=== PATIENT | female | born 1945 | race Caucasian/White ===

== ENCOUNTER 2024-09-11 14:08 | Inpatient (IN) | payer MEDICARE, SELFPAY ==
[2024-09-11 07:10] VITALS: BP 91/53
--- NOTE | 2024-09-11 07:38 | ED.GENMED ---
History of Present Illness
General
Chief Complaint: Abdominal Symptoms
Source: patient
Exam Limitations: none
Time Seen by Provider: 09/11/24 07:25
Nursing documentation reviewed up to this point in time: agreed with
History of Present Illness
History of Present Illness:
Patient presents to ED secondary to persistent nausea, vomiting, along with abdominal cramping sensation over the past 4 days. Patient was evaluated urgent care center yesterday and was given diagnosis of potential food poisoning. Denies any fever
or chills. Denies diarrhea. Denies new medications or diet. Denies previous history of similar symptoms. Denies previous history abdominal surgery. Denies recent travel. Denies sick contact. Denies recent weight changes.
Review of Systems
Review of Systems
Allergies reviewed?: Yes
All Other Systems: ROS reviewed and negative except as documented in HPI and ROS
Constitutional: Reports no symptoms
EENT: Reports no symptoms
Respiratory: Reports no symptoms
Cardiac: Reports no symptoms
ABD/GI: Reports abdominal pain, nausea and vomiting
Musculoskeletal: Reports no symptoms
Skin: Reports no symptoms
Neurological: Reports no symptoms
Phy Exam
Physical Exam
Physical Exam:
Physical Exam
General: mild distress, not acutely ill. afebrile
Head: nc/at. eomi
Neck: supple. no meningeal signs.
Heart: s1/s2 regular rate and rhythm, no murmur. equal radial pulses.
Lungs: no acute respiratory distress. clear bilaterally
Abdomen: normal bowel sounds. mild RLQ tenderness to palpation.
Neuro: alert and oriented. no focal neurological deficits
Skin: no rash
Psychiatric: well kept. interactive and cooperative
Extremities: no edema. no calf tenderness.
Course
Orders/Labs/Results
Orders:
Orders
09/11/24 07:38
Electrocardiogram (*1) Urgent
Reason for Study: QTc Monitoring
EKG- Treatment ONCE
0.9% Sodium Chloride 1000 ml [Nss] 1,000 ml IV BOLUS
09/11/24 08:04
Complete Blood Count/With Diff Urgent
Comprehensive Metabolic Panel Urgent
Magnesium Urgent
09/11/24 08:10
Iohexol [Omnipaque] See Protocol PO NOW STA
Ondansetron Injectable [Zofran] 4 mg IV NOW STA
09/11/24 08:36
CT Abd/pel (oral only)-DH Only Urgent
Comment:
Reason For Exam: RLQ pain
09/11/24 09:07
Prochlorperazine [Compazine] 10 mg IV NOW STA
09/11/24 13:15
0.9% Sodium Chloride 1000 ml [Nss] 1,000 ml IV 125 mls/hr
09/11/24 13:41
Admit/Transfer Patient As Directed
Co-Sign Provider:
Level of Care: Inpatient admission
Assign to:: Medical/Surgical
Physician / Group: [email or web address]
Diagnosis: acute gastroenteritis
Reason for Hospitalization: acute gastroenteritis
Expected length of stay greater than two midnights?: Yes
ELOS- Estimated Length of Stay in days: 2
I certify the patient meets the requirements for IP care: Yes
Code Status As Directed
Resuscitation Status: Full Code
PRN Pain Medication Management As Directed
May give lesser potent ordered pain med per pt: Yes
preference::
Protocol:: Medication orders for pain may be administered in a
manner that supports deferring to patient preference
when the pt is:
- Requesting an ordered lesser potent pain medication.
Least to most potent pain medications are defined
as: acetaminophen < NSAID < tramadol < opioids
(morphine, oxycodone, hydromorphone).
- Requesting a lesser dose of the same medication IF
ORDERED.
- Requesting a less intrusive route of administration
if both routes are prescribed by the provider (PO <
IV).
Abnormal Lab Results
09/11/24
08:04
MCH 33.6 H pg
(27.0-31.0)
Absolute Neuts (auto) 6.6 H 10^3/uL
(1.4-6.5)
Absolute Monos (auto) 1.0 H 10^3/uL
(0.1-0.6)
Lymphocytes % 15.0 L %
(20.5-51.1)
Monocytes % 10.8 H %
(1.7-9.3)
Chloride 83 L mmol/L
(98-107)
Carbon Dioxide 35 H mmol/L
(22-30)
BUN 52 H mg/dl
(7-17)
Creatinine 2.7 H mg/dL
(0.6-1.0)
Glucose 125 H mg/dl
(70-99)
Calcium 12.3 H mg/dl
(8.4-10.2)
Total Bilirubin 1.5 H mg/dl
(0.2-1.3)
09/11/24 08:04
09/11/24 08:04
Vital Signs
Initial and Last Documented VS:
Initial Vital Signs
Temp Pulse Resp BP Pulse Ox
98.1 F 87 16 91/53 98
09/11/24 07:10 09/11/24 07:10 09/11/24 07:10 09/11/24 07:10 09/11/24 07:10
Last Documented Vital Signs
Temp Pulse Resp BP Pulse Ox
98.1 F 82 18 105/72 99
09/11/24 07:10 09/11/24 12:52 09/11/24 12:52 09/11/24 12:52 09/11/24 12:52
MDM/Problems Addressed
MDM/Problems Addressed:
History, exam, and CT scan consistent with acute renal failure, likely secondary to dehydration from ongoing enteritis. As patient remains symptomatic, with presumably new renal failure, will be admitted for further evaluation treatment, including
continual hydration and symptomatic treatment.
*EKG
Interpreted by ED Provider?: Yes
EKG Intrepretation Date: 09/11/24
Heart Rate: 71
Rate: normal
Rhythm: sinus
[place]: normal axis
Interval: normal interval
Ischemia: T-wave inversion
*Critical Care Note
Total Time (30-74mins, 75-104mins- exclusive of procedures): Not Applicable
ED Attending Note
-
Portions of this chart may have been created with voice recognition software.� Occasional wrong word or��sound alike� substitutions may have occurred due to the inherent limitations of voice recognition software.
Discharge Plan
Departure
Patient Disposition: Admit
Date of Disposition: 09/11/24
Time of Disposition: 13:11
Admit to: Med/Surg
Presentation/result/management discussed w/ accepting MD/DO: Hospitalist
Discharge Problem:
Acute renal failure, Enteritis, Dehydration
Interventions
Interventions:
*Risk Screen - Suicide Last Done: 09/11/24 07:10
*General Assessment Last Done: 09/11/24 08:04
*Neglect/Abuse Screening Last Done: 09/11/24 07:10
ED- Fall Risk Assessment Last Done: 09/11/24 09:20
*ED COVID-19 Vaccine History Last Done: 09/11/24 08:04
HG-Vxbseq-Dztpdcjfzt Assessment Last Done: 09/11/24 09:20
[2024-09-11] MEDS: NSS 1000 IV ×3 (08:03→15:42)
[2024-09-11 08:04] VITALS: BMI 18.5
[2024-09-11 08:05] VITALS: BP 92/64
[2024-09-11 08:23] LABS: % Basophils 0.3 % (0-2); % Eosinophils 0.1 % (0-6); % Immature Granulocytes 0.4 % (0-0.5); % Monocytes 10.8 % (1.7-9.3); % Neutrophils 73.4 % (42.2-75.2); Absolute Lymphocytes 1.4 10^3/uL (1.2-3.4); Absolute Neutrophils 6.6 10^3/uL (1.4-6.5); Hematocrit 43.3 % (37.0-47.0); Hemoglobin 15.9 g/dL (12.0-16.0); Mean Corp Hgb Conc. 36.7 g/dL (33.0-37.0); Mean Corpuscular Hgb 33.6 pg (27.0-31.0); Mean Corpuscular Volume 91.5 fL (81.0-99.0); Mean Platelet Volume 9.9 fL (7.4-10.4); Nucleated Red Blood Cells % 0 %; Platelet Count 294 10^3/uL (130-400); Red Blood Cell Count 4.73 10^6/uL (4.20-5.40); Red Cell Dist. Width 13.9 % (11.5-14.5); White Blood Cell Count 9.1 10^3/uL (4.8-10.8)
[2024-09-11 08:26] LABS: ALT (SGPT) 20 U/L (0-35); AST (SGOT) 35 U/L (14-36); Alkaline Phosphatase 78 U/L (38-126); Blood Urea Nitrogen 52 mg/dl (7-17); Calcium 12.3 mg/dl (8.4-10.2); Carbon Dioxide 35 mmol/L (22-30); Chloride 83 mmol/L (98-107); Estimated Creatinine Clearance 14 ml/min; Glucose 125 mg/dl (70-99); Magnesium 2.1 mg/dl (1.6-2.3); Potassium 3.8 mmol/L (3.5-5.1); Sodium 135 mmol/L (135-145); Total Bilirubin 1.5 mg/dl (0.2-1.3); Total Protein 7.6 g/dl (6.3-8.2); eGFR 17.29
[2024-09-11] MEDS: ZOFRAN 4 MG IV (08:33)
[2024-09-11] MEDS: COMPAZINE 10 MG IV (09:13)
[2024-09-11 10:00] VITALS: BP 146/69
[2024-09-11] MEDS: OMNIPAQUE 50 ML PO (10:18)
[2024-09-11 12:52] VITALS: BP 105/72
--- NOTE | 2024-09-11 13:43 | HPS.HSE ---
Family Physician
-
Family Physician: Yoandy San
Chief Complaint
-
vomiting
History of Present Illness
78-year-old female past medical history of CAD, hypertension, anxiety, gout, GERD, hyperlipidemia, presenting with nausea, vomiting green material over the past 4 days. She states that she was eating arugula prior to her onset of symptoms 4 days
ago. She denies any significant amount of abdominal pain.
Patient went to urgent care yesterday and was diagnosed with potential food poisoning. Denies fevers or chills. Denies diarrhea. Denies any history of abdominal surgery. Denies any recent travel or sick contacts. Denies any weight changes.
She was initially constipated for 4 days but after receiving IV fluids today she has passed loose stools and feels better.
She is a former smoker. She denies alcohol use. She denies any marijuana or any other drugs.
Medical History
Past Medical History
Past Medical History: Reports Other (CAD, hypertension, anxiety, gout, GERD, hyperlipidemia,)
Past Surgical History: Reports None
Social History
Tobacco: Former Smoker
Alcohol: None
Drug: None
Family History
Family History: Not pertinent
Allergies / Home Medications
Allergies reflects when Allergies were last updated in [facility].
Home Medications with original date entered in [facility]
Allergy/Medication List:
Allergies
Allergy/AdvReac Type Severity Reaction Status Date / Time
Cephalosporins Allergy Unknown Verified 09/11/24 07:14
Penicillins Allergy Anaphylaxis Verified 09/11/24 07:14
Home Medications
allopurinol 300 mg tablet 300 mg PO DAILY 09/11/24
lisinopril 5 mg tablet 5 mg PO DAILY 09/11/24
metoprolol succinate 50 mg tablet,extended release 24 hr (Toprol XL) 50 mg PO DAILY 09/11/24
rosuvastatin 20 mg tablet (Crestor) 20 mg PO DAILY 09/11/24
turmeric 400 mg capsule 400 mg PO DAILY 09/11/24
vit C 30 mg-s.ho 250 mg-celery seed 75 mg-grape seed extrt capsule (Tart Ho) 1 cap PO DAILY 09/11/24
Review of Systems
-
History Source: Patient
A 12 point ROS was completed and negative except as noted: Yes
Constitutional: Reports No Symptoms
EENT: Reports No Symptoms
Respiratory: Reports No Symptoms
Cardiac: Reports No Symptoms
Abdomen/GI: Reports See HPI
: Reports No Symptoms
Musculoskeletal: Reports No Symptoms
Skin: Reports No Symptoms
Neurological: Reports No Symptoms
Endocrine: Reports No Symptoms
Hematologic/Lymphatic: Reports No Symptoms
Psych: Reports No Symptoms
Physical Exam
Vital Signs
Vital Signs
Temp Pulse Resp BP Pulse Ox
98.1 F 82 18 105/72 99
09/11/24 07:10 09/11/24 12:52 09/11/24 12:52 09/11/24 12:52 09/11/24 12:52
Physical Exam
General: Well Developed, Well Nourished and No Apparent Distress
HEENT: NormoCephalic, Moist mucous membranes and Atraumatic
Respiratory: Clear
Cardiac: S1/S2 and Regular Rhythm; No Murmur or Rub
GI: Soft, Non Tender, Non Distended and Normal Bowel Sounds; No Organomegaly
Rectal: Deferred by Provider
Musculoskeletal: No Clubbing, No Cyanosis and No Edema
Skin: No Rash
Neuro: Nonfocal/grossly intact
Laboratory Results
-
09/11/24 08:04
09/11/24 08:04
Laboratory Results
Total Bilirubin 1.5 mg/dl (0.2-1.3) H 09/11/24 08:04
AST 35 U/L (14-36) 09/11/24 08:04
ALT 20 U/L (0-35) 09/11/24 08:04
Alkaline Phosphatase 78 U/L (38-126) 09/11/24 08:04
Data Reviewed
-
Lab Data: Labs Reviewed by me
Old Records: Reviewed
Impression/Plan
-
IMPRESSION:
PLAN:
# Acute gastroenteritis versus adynamic ileus versus partial mechanical small bowel obstruction
-N.p.o.
-CT abdomen pelvis shows severe fluid distention of the stomach, duodenum, proximal small bowel loops, mid small bowel loops consistent with acute gastroenteritis, adynamic ileus, partial mechanical small bowel obstruction
-Zofran
-No abdominal tenderness, presentation more consistent with gastroenteritis/ileus than bowel obstruction at this time and patient clinically improving
# ANTONIA prerenal
-Creatinine of 2.7
-Hold lisinopril
# Hypercalcemia secondary to hypovolemia
-Calcium of 12.3
-Check PTH if still elevated after volume repletion
CAD
-Continue metoprolol
Essential hypertension
Anxiety
Gout
-Continue allopurinol
GERD
Hyperlipidemia
-Continue statin
Full code
DVT prophylaxis�heparin
N.p.o.
[2024-09-11 15:36] VITALS: BP 134/72; BMI 18.1
[2024-09-11 16:15] VITALS: BMI 18.1
--- NOTE | 2024-09-11 16:40 | PTCARENOTE ---
pt presents from ED via stretcher. pt is AAO*3, Vss, room air. pt denies any N/V at this time. denies any pain. pt is oriented to the room. call lerma within the reach. plan of care ongoing.
[2024-09-11] MEDS: HEPARIN 5000 UNITS SC (20:22)
[2024-09-11 23:40] VITALS: BP 111/61
[2024-09-12] MEDS: NSS 1000 IV ×2 (05:17→17:42)
[2024-09-12 05:57] LABS: % Basophils 0.6 % (0-2); % Eosinophils 1.5 % (0-6); % Immature Granulocytes 0.8 % (0-0.5); % Lymphocytes 17.7 % (20.5-51.1); % Monocytes 11.7 % (1.7-9.3); % Neutrophils 67.7 % (42.2-75.2); Absolute Eosinophils 0.1 10^3/uL (0-0.7); Absolute Immature Granulocytes 0.1 10^3/uL (0-0.05); Absolute Lymphocytes 1.2 10^3/uL (1.2-3.4); Absolute Monocytes 0.8 10^3/uL (0.1-0.6); Absolute Neutrophils 4.4 10^3/uL (1.4-6.5); Hematocrit 36.9 % (37.0-47.0); Hemoglobin 12.2 g/dL (12.0-16.0); Mean Corp Hgb Conc. 33.1 g/dL (33.0-37.0); Mean Corpuscular Hgb 32.1 pg (27.0-31.0); Mean Corpuscular Volume 97.1 fL (81.0-99.0); Nucleated Red Blood Cells % 0 %; Platelet Count 198 10^3/uL (130-400); White Blood Cell Count 6.6 10^3/uL (4.8-10.8)
[2024-09-12 06:11] LABS: ALT (SGPT) 17 U/L (0-35); AST (SGOT) 28 U/L (14-36); Albumin 3.4 g/dl (3.5-5.0); Alkaline Phosphatase 53 U/L (38-126); Blood Urea Nitrogen 44 mg/dl (7-17); Calcium 10.2 mg/dl (8.4-10.2); Carbon Dioxide 26 mmol/L (22-30); Chloride 100 mmol/L (98-107); Estimated Creatinine Clearance 23 ml/min; Glucose 75 mg/dl (70-99); Potassium 3.4 mmol/L (3.5-5.1); Sodium 139 mmol/L (135-145); Total Bilirubin 1.5 mg/dl (0.2-1.3); Total Protein 5.6 g/dl (6.3-8.2)
[2024-09-12 07:50] VITALS: BP 149/73
[2024-09-12] MEDS: CRESTOR 20 MG PO (08:03)
[2024-09-12] MEDS: HEPARIN 5000 UNITS SC ×2 (08:03→20:09)
[2024-09-12] MEDS: ZYLOPRIM 300 MG PO (08:03)
[2024-09-12] MEDS: TOPROL XL 50 MG PO (08:37)
--- NOTE | 2024-09-12 12:55 | CM ---
CM reviewed chart, patient seen bedside, initial assessment completed. Patient resides independently in a single story home, no steps to enter. Patient reports having a walker at home that was her husbands, does not use. Patient reports history of
[facility], denies SNF. Patient confirms PCP Yoandy San, pharmacy [facility], confirms prescription coverage. Patient denies insecurities at home. CM will continue to follow for all discharge planning needs.
Plan; home no needs likey.
--- NOTE | 2024-09-12 14:38 | W.PN.HOSP.TC ---
Today's Communication/Plan
-
trial of liquid diet
maintain on IVF
f/u labs
Assessment / Plan
Assessment / Plan
CTAP
1. Severe fluid distention of the stomach, duodenum, proximal small bowel loops, and mid small bowel loops. Slow transition of distended small bowel loops to completely collapsed distal ileal small bowel loops in the right side of the midabdomen.
Diagnostic possibilities are (1) an ACUTE GASTROENTERITIS, (2) an adynamic ileus, or (3) less likely a partial mechanical small bowel obstruction given the absence of a definitive transition point.
2. Moderate diverticulosis in the ascending and sigmoid colon.
3. 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
4. Mild chronic bilateral renal disease.
5. Severe calcific atherosclerotic plaque in the coronary arteries and aorta.
6. 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
7. 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
1. Adynamic ileus
-patient came with significant nausea and vomiting with green bilious emesis. no diarrhea
-clinical better, Bowel sound present on exam
-start trial of CL diet and advance to FL diet at dinner time
-No signs of infection, monitor off of antibiotic
2. ANTONIA
-Presumed volume depletion and VIOLETA use related
-Creatinine 2.5, trending down from 1.6 today
-continue monitor
3. Essential HTN
-Maintain on toprol xl
4. HLD
-continue on crestor
DVT PPX - Heparin subq
Full code
Anticipated Discharge: Within 24 hours
Subjective/Interval History
-
Date of Service: September 12, 2024
Clinically feeling better
Denies any abdominal pain
Not passing gas
No nausea or vomiting
Objective Data
-
Labs:
Laboratory Results
09/12/24
05:28
WBC 6.6
Hgb 12.2 D
Hct 36.9 L
Plt Count 198 D
Sodium 139
Potassium 3.4 L
Chloride 100
Carbon Dioxide 26
BUN 44 H
Creatinine 1.6 H
Glucose 75
Calcium 10.2 D
Total Bilirubin 1.5 H
AST 28
ALT 17
Alkaline Phosphatase 53
Vital Signs:
Vital Signs
Temp Pulse Resp BP Pulse Ox
97.4 F 63 18 149/73 98
09/12/24 07:50 09/12/24 07:50 09/12/24 07:50 09/12/24 07:50 09/12/24 07:50
I&O
09/11/24 09/12/24 09/13/24
06:59 06:59 06:59
Intake Total 1000 / 1000
Balance 1000 / 1000
Review of Systems
-
Respiratory: Reports No Symptoms
Cardiac: Reports No Symptoms
Abdomen/GI: Denies Abdominal Pain or Nausea
Physical Exam
-
General: No Apparent Distress and Comfortable
HEENT: Negative Oxygen
Respiratory: Clear to Auscultation
Cardiac: Regular Rhythm and S1/S2; Negative Murmur or Rub
GI: Soft, Nontender, Nondistended and Normal Bowel Sounds
Musculoskeletal: No Edema
Neuro: Awake, Alert, Oriented, No Motor Deficits and Nonfocal/Grossly Intact
Psych: Calm
[2024-09-12 15:40] VITALS: BP 137/71
[2024-09-12 23:47] VITALS: BP 145/76
[2024-09-13] MEDS: NSS 1000 IV (05:32)
[2024-09-13 06:55] LABS: Hematocrit 40.4 % (37.0-47.0); Hemoglobin 13.1 g/dL (12.0-16.0); Mean Corp Hgb Conc. 32.4 g/dL (33.0-37.0); Mean Corpuscular Hgb 32.2 pg (27.0-31.0); Mean Corpuscular Volume 99.3 fL (81.0-99.0); Mean Platelet Volume 10.4 fL (7.4-10.4); Platelet Count 231 10^3/uL (130-400); Red Blood Cell Count 4.07 10^6/uL (4.20-5.40); Red Cell Dist. Width 13.7 % (11.5-14.5); White Blood Cell Count 7.1 10^3/uL (4.8-10.8)
[2024-09-13 07:15] VITALS: BP 152/78
[2024-09-13 07:30] LABS: Blood Urea Nitrogen 28 mg/dl (7-17); Calcium 9.7 mg/dl (8.4-10.2); Carbon Dioxide 26 mmol/L (22-30); Chloride 104 mmol/L (98-107); Estimated Creatinine Clearance 30 ml/min; Glucose 94 mg/dl (70-99); Potassium 3.7 mmol/L (3.5-5.1); Sodium 143 mmol/L (135-145); eGFR 45.76
[2024-09-13] MEDS: HEPARIN 5000 UNITS SC (08:53)
[2024-09-13] MEDS: CRESTOR 20 MG PO (08:54)
[2024-09-13] MEDS: ZYLOPRIM 300 MG PO (08:54)
[2024-09-13] MEDS: TOPROL XL 50 MG PO (08:54)
--- NOTE | 2024-09-13 12:54 | CM ---
Met with patient at bedside
She reported that Son will transport her home
IMM benefit explained; form signed @ 1250
Plan: Discharge to home today; no needs
[2024-09-13] MEDS: CITROMA 300 ML PO (13:04)
--- NOTE | 2024-09-13 13:11 | W.PN.HOSP.TC ---
Today's Communication/Plan
-
d/c home
Assessment / Plan
Assessment / Plan
CTAP
1. Severe fluid distention of the stomach, duodenum, proximal small bowel loops, and mid small bowel loops. Slow transition of distended small bowel loops to completely collapsed distal ileal small bowel loops in the right side of the midabdomen.
Diagnostic possibilities are (1) an ACUTE GASTROENTERITIS, (2) an adynamic ileus, or (3) less likely a partial mechanical small bowel obstruction given the absence of a definitive transition point.
2. Moderate diverticulosis in the ascending and sigmoid colon.
3. 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
4. Mild chronic bilateral renal disease.
5. Severe calcific atherosclerotic plaque in the coronary arteries and aorta.
6. 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
7. 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

1. Adynamic ileus - Improved
-patient came with significant nausea and vomiting with green bilious emesis. no diarrhea
-Normal BS on exam today, passing gas.
-Able to tolerate LR diet without any issues
-providing dose of citroma before discharge
-No signs of infection, monitor off of antibiotic
2. ANTONIA - Improved
-Presumed volume depletion and VIOLETA use related
-Creatinine 2.7 at admit, rapidly normalizing. 1.2 today.
-continue monitor
3. Essential HTN
-Maintain on toprol xl
4. HLD
-continue on crestor
DVT PPX - Heparin subq
Full code
Anticipated Discharge: Today
Subjective/Interval History
-
Date of Service: September 13, 2024
no BM but passing gas
able to tolerate diet without any issues
Objective Data
-
Labs:
Laboratory Results
09/13/24
06:03
WBC 7.1
Hgb 13.1
Hct 40.4
Plt Count 231
Sodium 143
Potassium 3.7
Chloride 104
Carbon Dioxide 26
BUN 28 H
Creatinine 1.2 H
Glucose 94
Calcium 9.7
Vital Signs:
Vital Signs
Temp Pulse Resp BP Pulse Ox
97.6 F 64 16 152/78 98
09/13/24 07:15 09/13/24 07:15 09/13/24 07:15 09/13/24 07:15 09/13/24 07:15
I&O
09/12/24 09/13/24 09/14/24
06:59 06:59 06:59
Intake Total 1000 / 1000 240 / 240
Balance 1000 / 1000 240 / 240
Review of Systems
-
Respiratory: Reports No Symptoms
Cardiac: Reports No Symptoms
Abdomen/GI: Reports Constipated; Denies Abdominal Pain, Nausea or Vomiting
Physical Exam
-
General: No Apparent Distress and Comfortable
HEENT: Negative Oxygen
Respiratory: Clear to Auscultation
Cardiac: Regular Rhythm and S1/S2; Negative Murmur or Rub
GI: Soft, Nontender, Nondistended and Normal Bowel Sounds
Musculoskeletal: No Edema
Neuro: Awake, Alert, Oriented, No Motor Deficits and Nonfocal/Grossly Intact
Psych: Calm
[2024-09-13 13:50] VITALS: BP 142/74
--- NOTE | 2024-09-15 08:05 | W.DCSUMMARY ---
Discharge Summary
Discharge Data
Date of Admission: 09/11/24
Date of Discharge: 09/13/24
-
Pending Results: No
Hospital Course
Discharging Physician : Dr Marlon Conde
Disposition : Home
Primary care physician : Dr Yoandy San
Principal Discharge diagnosis :
Adynamic ileus
Intractable nausea and vomiting
Acute kidney injury
Chronic Discharge diagnosis :
Essential hypertension
Hyperlipidemia
Hospital Course :
Patient is 78-year-old female with above-mentioned past medical history came to ER with new onset of nausea vomiting, with bilious emesis for 3 to 4 days. Patient was seen day before by urgent care physician and was diagnosed to have potentially
food poisoning. Patient did not have any associated fever/abdominal pain/diarrhea. Patient came to [place] ER for further evaluation as symptoms persisted. CT abdomen pelvis showing distended stomach/duodenum/proximal small bowel loops with
potential differential of adynamic ileus or partial small bowel obstruction. Patient was started on conservative management and put on IV hydration. With symptomatic care patient symptoms improved within 48 hours and patient was able to tolerate
trial of solid food.
Patient also had acute kidney injury likely due to volume depletion and simultaneous VIOLETA inhibitor use for blood pressure control. This rapidly normalized with IV fluid as well. Patient will require follow-up blood work with primary care physician
office.
Important imaging findings :
None
Procedure findings :
None
Discharge Plan
-
Patient Disposition: Home (Routine Discharge)
Discharge Diagnosis/Procedures: Ileus
Condition: Fair
Diet: Low Residue
Activity: As tolerated
Driving Restrictions: As prior to admission
Bathing Restrictions: OK to Shower
Referrals:
Yoandy San, DO [Family Provider] - in one week
Prescriptions:
Continued
lisinopril 5 mg Tablet
5 mg PO DAILY
metoprolol succinate [Toprol XL] 50 mg Tablet Extended Release 24 Hr
50 mg PO DAILY
allopurinol 300 mg Tablet
300 mg PO DAILY
rosuvastatin [Crestor] 20 mg Tablet
20 mg PO DAILY
Tart Ho 03-294-50-75-20 mg Capsule
1 cap PO DAILY
turmeric 400 mg Capsule
400 mg PO DAILY
Discharge Orders:
Discharge Patient (As Directed); Ordered 09/13/24
Ordered By: Marlon Conde
Discharge Date and Time
Discharge Date/Time: 09/13/24 14:10
Print Language: LIBERIAN
== END 2024-09-13 14:10 | disposition home or self-care (01) | DRG 389 ==
LOC: 4 EAST ACU 14:08
PROVIDERS: ADMITTING PHYSICIAN Hospitalist; ATTENDING PHYSICIAN Hospitalist; EMERGENCY PHYSICIAN Emergency Medicine; FAMILY PHYSICIAN Family Medicine
DX: K56.0 Paralytic ileus (principal); N17.9 Acute kidney failure, unspecified; I10 Essential (primary) hypertension; I25.10 Atherosclerotic heart disease of native coronary artery without angina pectoris; F41.9 Anxiety disorder, unspecified; M10.9 Gout, unspecified; E78.5 Hyperlipidemia, unspecified; K21.9 Gastro-esophageal reflux disease without esophagitis; E86.1 Hypovolemia; E83.52 Hypercalcemia; E86.0 Dehydration; Z87.891 Personal history of nicotine dependence
CPT/HCPCS: 74176; 80048; 80053; 83735; 85025; 85027; 93005; 96361; 96374; 96375; 99285

== ENCOUNTER → 2024-09-29 10:46 | Outpatient (REF) | payer MEDICARE, SELFPAY | LOC: RAD 10:46 | PROVIDERS: ATTENDING PHYSICIAN Physician Assistant Medical; FAMILY PHYSICIAN Family Medicine | DX: M79.605 Pain in left leg (principal) | CPT/HCPCS: 93971 ==

== ENCOUNTER → 2024-10-13 09:54 | Outpatient (REF) | payer MEDICARE, SELFPAY | LOC: RAD 09:54 | PROVIDERS: ATTENDING PHYSICIAN Physician Assistant Medical; FAMILY PHYSICIAN Family Medicine | DX: M79.605 Pain in left leg (principal) | CPT/HCPCS: 93922; 93925 ==

== ENCOUNTER 2024-10-26 10:18 | Day surgery (SDC) | payer MEDICARE, SELFPAY ==
--- NOTE | 2024-10-19 16:00 | PTCARENOTE ---
Patients 09/11 ECG abnormal- reviewed by Dr. Swartz- no addtional interventions required
[2024-10-26] VITALS (15 sets, daily range): BP systolic 133–165; BP diastolic 67–92; BMI 20.3
[2024-10-26] MEDS: NSS 500 IV (10:59)
[2024-10-26 11:07] LABS: Hemoglobin 13.2 g/dL (12.0-16.0); Mean Corpuscular Hgb 32.5 pg (27.0-31.0); Mean Corpuscular Volume 98.5 fL (81.0-99.0); Mean Platelet Volume 9.7 fL (7.4-10.4); Platelet Count 229 10^3/uL (130-400); Red Blood Cell Count 4.06 10^6/uL (4.20-5.40); Red Cell Dist. Width 13.9 % (11.5-14.5); White Blood Cell Count 7.9 10^3/uL (4.8-10.8)
[2024-10-26 11:25] LABS: INR 0.96; PT 13.3 Sec (11.4-14.6)
[2024-10-26 11:26] LABS: Blood Urea Nitrogen 19 mg/dl (7-17); Calcium 10.8 mg/dl (8.4-10.2); Carbon Dioxide 26 mmol/L (22-30); Chloride 102 mmol/L (98-107); Estimated Creatinine Clearance 47 ml/min; Glucose 97 mg/dl (70-99); Potassium 4.3 mmol/L (3.5-5.1); Sodium 137 mmol/L (135-145); eGFR > 60.00
[2024-10-26 11:27] LABS: APTT 23.7 Sec (23.4-35.0)
--- NOTE | 2024-10-26 12:19 | W.SUR.PREOP ---
Pre-Operative Surgical Note
-
I have examined this patient prior to the performance of the scheduled procedure.
The patient's condition is unchanged from the time of the current History and
Physical and the patient is able to undergo the scheduled procedure.
[2024-10-26] MEDS: PLAVIX 300 MG PO (15:11)
[2024-10-26] MEDS: NSS 1000 IV (15:55)
--- NOTE | 2024-10-26 19:58 | OR.RPT ---
Operative Report
Operative Report
Date of Operation: 10/26/2024
Pre Op Diagnosis:
1. Peripheral arterial disease
2. Ischemic rest pain left foot
3. Disabling left lower extremity claudication
Post Op Diagnosis:
1. Peripheral arterial disease
2. Ischemic rest pain left foot
3. Disabling left lower extremity claudication
Procedure:
1.) Intravascular lithotripsy to left superficial femoral artery and popliteal artery using shockwave javelin catheter
2.) Intravascular lithotripsy to left common femoral artery and proximal superficial femoral artery using 7 mm x 60 mm shockwave M5+
3.) Balloon angioplasty and stenting of left popliteal artery and distal superficial femoral artery (overlapping Zilver PTX stents; 6 mm x 140 mm distal, 6 mm x 60 mm proximal)
4.) Diagnostic aortobiiliac arteriogram
5.) Diagnostic left lower extremity arteriogram
6.) Ultrasound-guided percutaneous access to the right common femoral artery
7.) Pro-glide closure of the right common femoral artery access
Surgeon: Conrado Bah III, MD
Anesthesia: Sedation with local
Fluoroscopy:
39.3 min
175 mGy
32.63 Gy.cm2
Complications: None
Estimated Blood Loss: Minimal
History and Indications for Procedure: 79-year-old female with peripheral arterial disease, disabling left lower extremity claudication and ischemic rest pain of her left foot. She was brought to the operating room for arteriogram and possible
endovascular intervention
Procedure in Detail: Loren Ruiz was correctly identified and placed supine on the operating table. After adequate induction of anesthesia the bilateral groins were prepped and draped in the usual sterile fashion. A timeout was performed with the
nursing and anesthesia staff confirming the patient's identity as well as the nature and laterality of the procedure.
The right common femoral artery was identified under ultrasound guidance. The artery was patent. The superior and inferior aspects of the femoral head were identified with radiographic guidance and marked at the skin level. The proposed puncture
site was infiltrated with local anesthesia. Under ultrasound guidance we accessed the right common femoral artery with a micropuncture needle and upsized to a 5 Fr sheath over a Omise wire. The wire and a Shepherds hook flush catheter were
advanced into the distal abdominal aorta and a diagnostic aorto-biiliac arteriogram was performed:
AORTO-ILIAC ARTERIOGRAM:
Aorta: Heavily calcified. Focal ectasia of the infrarenal abdominal aorta. No stenosis identified
Right common iliac artery: Calcified. Patent. No significant stenosis identified
Right external iliac artery: Patent with no significant stenosis identified
Left common iliac artery: Calcified. Patent. No significant stenosis identified
Left external iliac artery: Patent with no significant stenosis identified
Under roadmap guidance using a Glidewire and the Shepherds hook catheter we selected the left common iliac artery and then the external iliac artery. A Quickcross catheter was tracked up and over the aortic bifurcation and placed in the distal
external iliac artery. A diagnostic left lower extremity arteriogram was then performed which demonstrated the following:
LEFT LOWER EXTREMITY:
Common femoral artery: Calcified. Moderate to high-grade stenosis
Profunda femoral artery: Calcified plaque at the femoral bifurcation. Patent profunda femoral artery
Superficial femoral artery: Calcified plaque at the origin and proximal SFA contributing to moderate to high-grade stenosis. Remainder of SFA diffusely calcified but no significant stenosis
Popliteal artery: Above-knee popliteal artery occluded. Heavily calcified throughout. Reconstitutes behind the knee. High-grade calcified stenosis behind the knee. Patent below the knee with no stenosis identified
Anterior tibial artery: Patent
Tibioperoneal trunk: Patent
Peroneal artery: Patent
Posterior tibial artery: Patent but occludes at the mid to distal calf
ENDOVASCULAR INTERVENTION: Systemic heparin was administered. Exchanged out for a 6 Fr 45 cm sheath over a Storq wire. Selected the superficial femoral artery under roadmap guidance with Quickcross catheter and glidewire. The popliteal occlusion was
crossed with a stiff Glidewire and Quickcross. The wire and catheter were advanced into the below-knee popliteal artery and subtraction angio confirmed proper position in the true lumen. Exchanged out for a BitTorrent ST 0.014 wire. I initially
attempted to perform intravascular lithotripsy using a E8 catheter however this would not deliver across the popliteal occlusion. A 4 mm x 120 mm angioplasty balloon was placed across the occlusion under roadmap guidance. The balloon was inflated
to nominal pressure and then deflated and removed over the wire. I once again attempted to advance the E8 catheter but this would not pass once again. I therefore used the shockwave javelin catheter to perform intravascular lithotripsy across the
heavily calcified popliteal artery occlusion/stenosis. Under roadmap guidance I brought into position the shockwave javelin catheter over the 014 wire. Under roadmap guidance while gently advancing the catheter I simultaneously administered
lithotripsy pulses. The entire length of the popliteal occlusion and areas of popliteal stenosis behind the knee were treated with the shockwave javelin catheter. All 120 pulses were administered. Following this I was able to successfully deliver
a 6 mm x 140 mm Zilver PTX stent. This was positioned and deployed in the desired location across the popliteal artery behind the knee. I extended more proximally with a 6 mm x 60 mm Zilver PTX stent, positioned and deployed in the desired
location. The stents were postdilated with a 6 mm angioplasty balloon. Subsequent arteriogram demonstrated an excellent technical result with widely patent stents and no significant residual stenosis identified.
I then focused my attention on the calcified disease in the proximal superficial femoral artery and common femoral artery. Due to the heavily calcified nature of the arterial disease and in an effort to modify the calcium to achieve maximum luminal
gain with endovascular intervention I elected to proceed with intravascular lithotripsy. A 7 mm x 60 mm M5+ Shockwave balloon was placed across the stenosis under roadmap guidance. Alternating rounds of lithotripsy pulse delivery at sub-nominal
pressure and angioplasty at nominal pressure was performed across the stenosis. In between rounds of pulse delivery and angioplasty the balloon was deflated and repositioned under roadmap guidance. All 300 pulses were delivered. Subsequent
arteriogram demonstrated an excellent technical result with a widely patent common femoral artery, proximal superficial femoral artery and profunda femoral artery with no significant residual stenosis identified.
COMPLETION ARTERIOGRAM: Excellent technical result. Brisk flow through the common femoral artery, superficial femoral artery, profunda femoral artery and popliteal artery stents with no significant residual stenosis identified. Significantly
improved tibial artery flow compared to pretreatment. Patent anterior tibial and peroneal artery runoff distally. Once again demonstrated was a distal posterior tibial artery occlusion.
Satisfied with this result we concluded the procedure. The sheath tip was pulled back into the right external iliac artery. The wire was exchanged out for a Bentson wire. A single Pro-glide closure device was used on the right common femoral
artery access. Protamine was administered. Hemostasis was achieved. A sterile dressing was applied.
The patient tolerated the procedure well and was taken to the recovery area in stable condition.
Signed:
Conrado Bah III, MD
[facility]
[phone] (mrno)
== END 2024-10-26 17:45 | disposition home or self-care (01) ==
LOC: CATH 10:18
PROVIDERS: ATTENDING PHYSICIAN Surgery Vascular Surgery; FAMILY PHYSICIAN Physician Assistant Medical
DX: I70.222 Atherosclerosis of native arteries of extremities with rest pain, left leg (principal); Z95.820 Peripheral vascular angioplasty status with implants and grafts; Z79.82 Long term (current) use of aspirin; Z79.02 Long term (current) use of antithrombotics/antiplatelets; Z79.899 Other long term (current) drug therapy
CPT/HCPCS: C9765; 75625; 75716; 80048; 85027; 85610; 85730; 93005; C1725; C1760; C1769; C1874; C1894; Q9967

== ENCOUNTER 2024-10-26 21:06 | Emergency (ER) | payer MEDICARE, SELFPAY ==
[2024-10-26 21:10] VITALS: BP 169/88
[2024-10-26 21:30] VITALS: BP 177/82
[2024-10-26] MEDS: TYLENOL 1000 MG PO (21:59)
[2024-10-26 22:13] LABS: % Basophils 0.2 % (0-2); % Immature Granulocytes 0.3 % (0-0.5); % Lymphocytes 10.6 % (20.5-51.1); % Monocytes 0.6 % (1.7-9.3); % Neutrophils 88.3 % (42.2-75.2); Absolute Lymphocytes 0.7 10^3/uL (1.2-3.4); Absolute Neutrophils 5.6 10^3/uL (1.4-6.5); Hematocrit 43.3 % (37.0-47.0); Hemoglobin 14.2 g/dL (12.0-16.0); Mean Corp Hgb Conc. 32.8 g/dL (33.0-37.0); Mean Corpuscular Hgb 31.9 pg (27.0-31.0); Mean Corpuscular Volume 97.3 fL (81.0-99.0); Mean Platelet Volume 9.6 fL (7.4-10.4); Nucleated Red Blood Cells % 0 %; Platelet Count 237 10^3/uL (130-400); Red Blood Cell Count 4.45 10^6/uL (4.20-5.40); Red Cell Dist. Width 13.9 % (11.5-14.5); White Blood Cell Count 6.3 10^3/uL (4.8-10.8)
[2024-10-26 22:31] LABS: ALT (SGPT) 21 U/L (0-35); AST (SGOT) 27 U/L (14-36); Albumin 4.7 g/dl (3.5-5.0); Alkaline Phosphatase 81 U/L (38-126); Blood Urea Nitrogen 21 mg/dl (7-17); Carbon Dioxide 24 mmol/L (22-30); Chloride 105 mmol/L (98-107); Glucose 140 mg/dl (70-99); Potassium 4.6 mmol/L (3.5-5.1); Sodium 140 mmol/L (135-145); Total Bilirubin 0.9 mg/dl (0.2-1.3); Total Protein 7.3 g/dl (6.3-8.2)
[2024-10-26 22:35] VITALS: BP 137/77
--- NOTE | 2024-10-26 22:50 | ED.GENMED ---
History of Present Illness
General
Chief Complaint: Post Operative Problem(s)
Source: patient
Time Seen by Provider: 10/26/24 21:25
History of Present Illness
History of Present Illness:
79-year-old female presents to the emergency room complaining of pain in her left foot and lower extremity. Pain radiates up to her hip. Patient had vascular procedure today for peripheral vascular disease causing chronic limb threatening
ischemia. Procedure went well without apparent complications. 2 hours after returning home patient began to feel like the anesthesia was wearing off and her left leg became quite painful. The reason for the procedure was pain but this felt worse.
She spoke to the vascular surgeon on-call who recommended she come to the emergency room for evaluation.
Phy Exam
Physical Exam
Physical Exam:
General: Awake, Alert, Oriented X3. No acute distress.
Vitals: unremarkable
Head: Atraumatic
Eyes: Pupils equal, EOMI
Throat: Airway intact, no exudates
Neck: Trachea midline
Lungs: Clear and equal b/l
Heart: Regular rate, no murmurs
Abd: Soft, Nontender, No pulsatile mass
Neuro: Nonfocal
Skin: Warm, dry, no rash
Extremities: pulses equal b/l, no edema, left groin puncture site noted, no hematoma or pseudoaneurysm noted. Dorsalis pedis in particular tibial pulses palpable. Cap refill is very brisk. Left foot is warm
Course
Orders/Labs/Results
Orders:
Orders
10/26/24 21:38
US Vasc Ltd W ZONIA Urgent
Comment:
Reason For Exam: l leg pain s/p stenting
10/26/24 21:44
Acetaminophen [Tylenol] 1,000 mg PO NOW STA
10/26/24 22:01
Complete Blood Count/With Diff Urgent
Comprehensive Metabolic Panel Urgent
Abnormal Lab Results
10/26/24
22:01
MCH 31.9 H pg
(27.0-31.0)
MCHC 32.8 L g/dL
(33.0-37.0)
Absolute Lymphs (auto) 0.7 L 10^3/uL
(1.2-3.4)
Absolute Monos (auto) 0.0 L 10^3/uL
(0.1-0.6)
Neutrophils % 88.3 H %
(42.2-75.2)
Lymphocytes % 10.6 L %
(20.5-51.1)
Monocytes % 0.6 L %
(1.7-9.3)
BUN 21 H mg/dl
(7-17)
Glucose 140 H mg/dl
(70-99)
Calcium 11.0 H mg/dl
(8.4-10.2)
10/26/24 22:01
10/26/24 22:01
Vital Signs
Initial and Last Documented VS:
Initial Vital Signs
Temp Pulse Resp BP Pulse Ox
97.7 F 72 18 169/88 99
10/26/24 21:10 10/26/24 21:10 10/26/24 21:10 10/26/24 21:10 10/26/24 21:10
Last Documented Vital Signs
Temp Pulse Resp BP Pulse Ox
97.7 F 58 16 138/83 97
10/26/24 21:10 10/26/24 23:45 10/26/24 23:45 10/26/24 23:46 10/26/24 23:45
MDM/Problems Addressed
Differential Diagnosis Includes:
Stent occlusion, reperfusion injury, chronic leg pain
MDM/Problems Addressed:
Patient presents with pain after vascular procedure. Physical exam does not suggest clot stent occlusion. Case discussed with Dr. Bustos. Recommend vascular ABIs.
Chronic conditions affecting care: HTN and Other (PVD)
*Radiology
Radiology exam reviewed: radiology read reviewed (expected post-op study per Dr Bustos)
*Pulse Oximetry
Patient hypoxic: no
*Critical Care Note
Total Time (30-74mins, 75-104mins- exclusive of procedures): Not Applicable
ED Attending Note
-
Portions of this chart may have been created with voice recognition software.� Occasional wrong word or��sound alike� substitutions may have occurred due to the inherent limitations of voice recognition software.
Discharge Plan
Departure
Patient Disposition: Home (Routine Discharge)
Date of Disposition: 10/26/24
Time of Disposition: 23:38
Patient with high blood pressure during this ER visit?: No
Condition: Good
Discharge Problem:
Acute pain of left lower extremity, Reperfusion pain
Instructions: Peripheral artery disease and claudication
Prescriptions:
No Action
lisinopril 5 mg Tablet
5 mg PO HS
metoprolol succinate [Toprol XL] 50 mg Tablet Extended Release 24 Hr
50 mg PO DAILY
allopurinol 300 mg Tablet
150 mg PO DAILY
rosuvastatin [Crestor] 20 mg Tablet
20 mg PO DAILY
Tart Ho 11-524-71-75-20 mg Capsule
1 cap PO DAILY
turmeric 400 mg Capsule
400 mg PO WEEKLY
Advanced Multi Tablet-Not Chewable
1 tab PO DAILY
aspirin 81 mg Tablet,Delayed Release (Dr/Ec)
81 mg PO DAILY
potassium 99 mg Tablet
99 mg PO DAILY
magnesium 250 mg Tablet
250 mg PO DAILYPRN PRN (Reason: constipation)
clopidogrel 75 mg Tablet
75 mg PO DAILY Qty: 90 0RF
Referrals:
Conrado Bah III, MD [Active] -
Yoandy San DO [Family Provider] -
Activity Restrictions/Additional Instructions:
Please return to the emergency room if your leg becomes pale or blue, you have no pulse or pain becomes dramatically worse. Call Dr. Bah's office in the
Interventions
Interventions:
*Risk Screen - Suicide Last Done: 10/26/24 21:10
*General Assessment Last Done: 10/26/24 21:30
*Neglect/Abuse Screening Last Done: 10/26/24 21:10
ED- Fall Risk Assessment Last Done: 10/26/24 21:30
*ED COVID-19 Vaccine History Last Done: 10/26/24 21:10
*Nursing Disposition Last Done: 10/26/24 23:57
ED-Skin Assessment Last Done: 10/26/24 21:30
Discharge Date and Time
Discharge Date/Time: 10/26/24 23:57
Print Language: KAZAKH
[2024-10-26 23:00] VITALS: BP 141/86
[2024-10-26 23:46] VITALS: BP 138/83
== END 2024-10-26 23:57 | disposition home or self-care (01) ==
LOC: EMR 21:06
PROVIDERS: EMERGENCY PHYSICIAN Emergency Medicine; FAMILY PHYSICIAN Family Medicine
DX: M79.605 Pain in left leg (principal); M79.672 Pain in left foot; I70.229 Atherosclerosis of native arteries of extremities with rest pain, unspecified extremity; I10 Essential (primary) hypertension; I73.9 Peripheral vascular disease, unspecified; Z98.890 Other specified postprocedural states
CPT/HCPCS: 99284; 80053; 85025; 93922; 93926

== ENCOUNTER 2024-11-17 14:21 | Emergency (ER) | payer MEDICARE, SELFPAY ==
[2024-11-17 14:27] VITALS: BP 166/88
--- NOTE | 2024-11-17 15:52 | ED.GENMED ---
History of Present Illness
General
Chief Complaint: Extremity Pain (non-traumatic)
Source: patient
Exam Limitations: none
Time Seen by Provider: 11/17/24 15:21
Nursing documentation reviewed up to this point in time: agreed with
History of Present Illness
History of Present Illness:
Patient is an 79-year-old female status post stent to left leg 10/[address] Bah presents to the ER with complaints of pain behind right knee. She reports this pain started yesterday.
she feels discomfort behind the right knee slight radiation pain to the right lower leg she denies swelling. She reports pain does not feel like her left leg did prior to stents. She reports this is different. She denies any fever chills/redness.
she has known bakers cyst behind right knee.
She is on Plavix and has not missed a dose.
She denies any fever chills chest pain shortness of breath
Review of Systems
Review of Systems
Allergies reviewed?: Yes
All Other Systems: ROS reviewed and negative except as documented in HPI and ROS
Constitutional: Reports no symptoms; Denies fever, fatigue or chills
Cardiac: Reports no symptoms
ABD/GI: Reports no symptoms
: Reports no symptoms
Musculoskeletal: Reports other ( pain behind right knee )
Skin: Reports no symptoms
Neurological: Reports no symptoms
Psychiatric: Reports no symptoms
Phy Exam
General Physical Exam
General Presentation: no apparent distress
General age: appears stated age
General Skin: warm and dry
General Habitus: normal
General Mental: alert
General Hydration: appears well hydrated
Neurological Exam
Neurological Exam: alert and oriented x3
Musculoskeletal Exam
Musculoskeletal Exam: other (Strong palpable PT and DP pulses to right lower extremity foot and leg is warm to touch no obvious swelling no redness good range of motion to knee patient complains of mild tenderness posterior knee, left l/e also with
strong pulses and warm. both l/e are pink in color )
Skin Exam
Skin Exam: normal color and warm/dry
Psychiatric Exam
Psychiatric Exam: normal mood/affect
Course
Orders/Labs/Results
Orders:
Orders
11/17/24 14:22
US Periph Venous LOWER Ext RT Urgent
Comment:
Reason For Exam: R posterior knee/leg pain
11/17/24 16:01
Knee, Right 4 or More Views [CR Knee- Right 4 Or More View*] Urgent
Comment:
Reason For Exam: pain
Vital Signs
Initial and Last Documented VS:
Initial Vital Signs
Temp Pulse Resp Pulse Ox
98.5 F 70 18 95
11/17/24 14:25 11/17/24 14:25 11/17/24 14:25 11/17/24 14:25
Last Documented Vital Signs
Temp Pulse Resp BP Pulse Ox
98.5 F 70 18 166/88 95
11/17/24 14:25 11/17/24 14:25 11/17/24 14:25 11/17/24 14:27 11/17/24 14:25
MDM/Problems Addressed
MDM/Problems Addressed:
Patient has a history of left leg stents in addition she had his right leg stented 5 years ago. She presented because of pain to the right posterior knee area there she denies any injury. She is a known Causey's cyst. She does feel that pain is
different than the pain she had in her left leg before her stent. She presents awake alert no acute distress denies any fever chills redness injury. She denies extremity swelling. She is on Plavix and has not missed a dose. She does have strong
palpable pulses foot is warm to touch nml vascular exam. l leg also with normal vascular exam. Ultrasound negative for DVT Causey's cyst that show and again she is aware of this.
From a vascular perspective patient is intact. I did review this with Dr. Bah.
case reviewed with ED physician. no evidence of infection.no acute findings on xray. No clear cause for patient's pain will DC with PCP and Ortho follow-up
*Critical Care Note
Total Time (30-74mins, 75-104mins- exclusive of procedures): Not Applicable
Patient Management
Discussion with other providers: English Tutor (DR Bah vascular )
ED Attending Note
-
Portions of this chart may have been created with voice recognition software.� Occasional wrong word or��sound alike� substitutions may have occurred due to the inherent limitations of voice recognition software.
Discharge Plan
Departure
Patient Disposition: Home (Routine Discharge)
Date of Disposition: 11/17/24
Time of Disposition: 16:20
Patient with high blood pressure during this ER visit?: Yes
Condition: Fair
Covid-19: Not Applicable
Discharge Problem:
Acute knee pain
Instructions: Knee pain, BLOOD PRESSURE
Prescriptions:
No Action
lisinopril 5 mg Tablet
5 mg PO HS
metoprolol succinate [Toprol XL] 50 mg Tablet Extended Release 24 Hr
50 mg PO DAILY
allopurinol 300 mg Tablet
150 mg PO DAILY
rosuvastatin [Crestor] 20 mg Tablet
20 mg PO DAILY
Tart Ho 13-784-74-75-20 mg Capsule
1 cap PO DAILY
turmeric 400 mg Capsule
400 mg PO WEEKLY
Advanced Multi Tablet-Not Chewable
1 tab PO DAILY
aspirin 81 mg Tablet,Delayed Release (Dr/Ec)
81 mg PO DAILY
potassium 99 mg Tablet
99 mg PO DAILY
magnesium 250 mg Tablet
250 mg PO DAILYPRN PRN (Reason: constipation)
clopidogrel 75 mg Tablet
75 mg PO DAILY Qty: 90 0RF
Referrals:
Corinne Piper I., DO [Active] -
Lizeth Mathews PA-C [Family Provider] -
Activity Restrictions/Additional Instructions:
As discussed there are no acute concerning findings on x-ray. Your ultrasound was negative for blood clot. You have good strong pulses and normal circulation. Follow-up with orthopedics in the next several days please call to make an appointment.
You may take Tylenol as needed. Rest knee as much as possible. Return if any worsening of symptoms.
Interventions
Interventions:
*Risk Screen - Suicide Last Done: 11/17/24 15:23
*General Assessment Last Done: 11/17/24 15:23
*Neglect/Abuse Screening Last Done: 11/17/24 15:23
*ED COVID-19 Vaccine History Last Done: 11/17/24 15:23
ED-Skin Assessment Last Done: 11/17/24 15:23
ED-Musculoskeletal Assessment Last Done: 11/17/24 15:23
Discharge Date and Time
Print Language: CAMBODIAN
== END 2024-11-17 16:36 | disposition home or self-care (01) ==
LOC: EMR 14:21
PROVIDERS: EMERGENCY PHYSICIAN Emergency Medicine; FAMILY PHYSICIAN Physician Assistant Medical
DX: M25.561 Pain in right knee (principal); R03.0 Elevated blood-pressure reading, without diagnosis of hypertension
CPT/HCPCS: 99284; 73564; 93971

== ENCOUNTER → 2024-11-27 14:00 | Outpatient (REF) | payer MEDICARE, SELFPAY | LOC: RAD 14:00 | PROVIDERS: ATTENDING PHYSICIAN Surgery Vascular Surgery | DX: I73.9 Peripheral vascular disease, unspecified (principal) | CPT/HCPCS: 93922; 93925 ==

== ENCOUNTER → 2024-11-29 07:12 | Outpatient (REF) | payer MEDICARE, SELFPAY | LOC: MRI 07:12 | PROVIDERS: ATTENDING PHYSICIAN Orthopaedic Surgery; FAMILY PHYSICIAN Physician Assistant Medical | DX: M25.561 Pain in right knee (principal) | CPT/HCPCS: 73721 ==

== ENCOUNTER → 2024-12-28 08:49 | Outpatient (REF) | payer OTHER, SELFPAY | LOC: RAD 08:49 | PROVIDERS: ATTENDING PHYSICIAN Physician Assistant Medical | DX: E83.52 Hypercalcemia (principal) | CPT/HCPCS: 78071; A9500 ==

== ENCOUNTER → 2025-01-21 12:11 | Outpatient (REF) | payer OTHER, SELFPAY | LOC: HWRAD 12:11 | PROVIDERS: ATTENDING PHYSICIAN Internal Medicine Endocrinology, Diabetes & Metabolism; FAMILY PHYSICIAN Physician Assistant Medical | DX: E21.0 Primary hyperparathyroidism (principal); E04.1 Nontoxic single thyroid nodule | CPT/HCPCS: 76536; 76775 ==

== ENCOUNTER → 2025-02-02 11:23 | Outpatient (REF) | payer OTHER, SELFPAY | LOC: HWRAD 11:23 | PROVIDERS: ATTENDING PHYSICIAN Internal Medicine Endocrinology, Diabetes & Metabolism; FAMILY PHYSICIAN Physician Assistant Medical | DX: E21.0 Primary hyperparathyroidism (principal) | CPT/HCPCS: 77080 ==

== ENCOUNTER → 2025-06-02 09:45 | Outpatient (REF) | payer OTHER, SELFPAY | LOC: RAD 09:45 | PROVIDERS: ATTENDING PHYSICIAN Registered Nurse; FAMILY PHYSICIAN Physician Assistant Medical | DX: I70.229 Atherosclerosis of native arteries of extremities with rest pain, unspecified extremity (principal) | CPT/HCPCS: 93922; 93925 ==